=== PATIENT | male | born 1970 | race Caucasian/White ===

== ENCOUNTER 2016-12-09 10:50 | Emergency (ER) | payer OTHER ==
[~2016-12-09] VITALS: Ht 175.3 cm; Wt 95.2 kg
== END 2016-12-09 12:24 | disposition home or self-care (01) ==
LOC: ED 10:50
DX: S73.112A Iliofemoral ligament sprain of left hip, initial encounter (principal); X58.XXXA Exposure to other specified factors, initial encounter
CPT/HCPCS: 73552; 99283

== ENCOUNTER 2016-12-15 12:51 | Emergency (ER) | payer OTHER ==
[~2016-12-15] VITALS: Ht 175.3 cm; Wt 95.3 kg
[2016-12-15] MEDS ORDERED: ADVIL200 MG PO (13:02)
[2016-12-15] MEDS ORDERED: NORCO 5-325 TA1 EACH PO (14:08)
[2016-12-15] MEDS ORDERED: METHYLPREDNISOLO4 M1 PO (14:08)
== END 2016-12-15 14:27 | disposition home or self-care (01) ==
LOC: ED 12:51
DX: M25.552 Pain in left hip (principal); Z79.899 Other long term (current) drug therapy
CPT/HCPCS: 73502; 96374; 96375; 99283; J1100; J1885

== ENCOUNTER 2018-11-01 11:20 | Emergency (ER) | payer BC ==
[~2018-11-01] VITALS: Ht 175.3 cm; Wt 95.2 kg
[~2018-11-01 11:20] MED LIST: ADVIL200 MG PO; METHYLPREDNISOLO4 M1 PO; NORCO 5-325 TA1 EACH PO
--- OUTSIDE RECORDS SUMMARY | 2018-11-01 11:22 | XMS ---
PreManage Notification: ERIC JOLLEY Security Track Service Person Events No recent Security Events currently on file CRITERIA MET - Group Notification CARE PROVIDERS There are no care providers on record at this time. Anuel has no Care Guidelines for this patient. Angel VISIT COUNT (12 MO.) 1 [facility] TOTAL 1 NOTE: Visits indicate total known visits. ED/C VISIT TRACKING (12 MO.) 11/01/2018 11:20 [facility] [place] TYPE: Emergency COMPLAINT: - DIFFICULTY BREATHING INPATIENT VISIT TRACKING (12 MO.) No inpatient visits to display in this time frame [id number]
[2018-11-01] MEDS ORDERED: VENTOLIN HFA18 GM INH (13:20)
[2018-11-01] MEDS ORDERED: PREDNISONE10 MG PO (13:20)
[2018-11-01] MEDS ORDERED: ZITHROMAX1 GM PO (13:20)
--- NOTE | 2018-11-02 07:59 | EKG ---
[facility] [address] [facility] [place] [address] Signed Normal sinus rhythm Nonspecific ST and T wave abnormality Abnormal ECG No previous ECGs available Confirmed by BHUPINDER HUNT MD ([id number]) on 11/02/2018 7:58:57 AM Electronically Signed By: BHUPINDER HUNT MD 11/02/18 0759 PATIENT NAME: ERIC JOLLEY Electrocardiogram DATE OF : 74 PHYSICIAN: BHUPINDER HUNT MD REPORT #: [id number] REPORT IS CONFIDENTIAL AND NOT TO BE RELEASED WITHOUT AUTHORIZATION
== END 2018-11-01 13:47 | disposition home or self-care (01) ==
LOC: ED 11:20
DX: J45.901 Unspecified asthma with (acute) exacerbation (principal)
CPT/HCPCS: 71045; 93005; 93010; 94640; 99283-25; J7512

== ENCOUNTER 2019-02-13 14:47 | Emergency (ER) | payer OTHER ==
[~2019-02-13] VITALS: Ht 175.3 cm; Wt 113.4 kg
[~2019-02-13 14:47] MED LIST changes: +PREDNISONE10 MG PO; +VENTOLIN HFA18 GM INH; +ZITHROMAX1 GM PO
--- OUTSIDE RECORDS SUMMARY | 2019-02-13 14:50 | XMS ---
PreManage Notification: ERIC JOLLEY Security Pole Framer Events No recent Security Events currently on file CRITERIA MET - [facility] - Has Care Guidelines CARE PROVIDERS VALENTINA ARIAS [facility] 11/02/2018-Current PHONE: [phone] Anuel has no Care Guidelines for this patient. Care History Medical/Surgical 11/02/2018 [facility] - CHW HELPED PATIENT SET UP A PCP APT WITH DR PEREZ OFFICE- NEW PROVIDER DR ARIAS ON 11/22/18 @ 3:20PM. - PATIENT STATED HE WAS ABLE TO GET TO THE APT SINCE IT IS AFTER HIS WORK HOURS. - CHW DISCUSSED THE WALK IN CLINIC LOCATION AND HOURS FOR FUTURE NON EMERGENT USAGE. E.D. VISIT COUNT (12 MO.) 2 [facility] TOTAL 2 NOTE: Visits indicate total known visits. ED/UCC VISIT TRACKING (12 MO.) 02/13/2019 14:47 [facility] TYPE: Emergency COMPLAINT: - LEG PAIN, INJ 11/01/2018 11:20 [facility] TYPE: Emergency COMPLAINT: - DIFFICULTY BREATHING DIAGNOSES: - Cough - Unspecified asthma with (acute) exacerbation INPATIENT VISIT TRACKING (12 MO.) No inpatient visits to display in this time frame [id number]
== END 2019-02-13 16:55 | disposition home or self-care (01) ==
LOC: ED 14:47
DX: S86.912A Strain of unspecified muscle(s) and tendon(s) at lower leg level, left leg, initial encounter (principal); X50.1XXA Overexertion from prolonged static or awkward postures, initial encounter
CPT/HCPCS: 99283

== ENCOUNTER 2019-06-07 10:49 | Emergency (ER) | payer OTHER, BC ==
[~2019-06-07] VITALS: Ht 175.3 cm; Wt 113.4 kg
--- OUTSIDE RECORDS SUMMARY | 2019-06-07 10:52 | XMS ---
PreManage Notification: ERIC JOLLEY Security Family Literacy Coordinator Events No recent Security Events currently on file CRITERIA MET - [facility] - Has Care Guidelines CARE PROVIDERS VALENTINA ARIAS [facility] 11/02/2018-Current PHONE: [phone] Anuel has no Care Guidelines for this patient. Care History Medical/Surgical 11/02/2018 [facility] - CHW HELPED PATIENT SET UP A PCP APT WITH DR PEREZ OFFICE- NEW PROVIDER DR ARIAS ON 11/22/18 @ 3:20PM. - PATIENT STATED HE WAS ABLE TO GET TO THE APT SINCE IT IS AFTER HIS WORK HOURS. - CHW DISCUSSED THE WALK IN CLINIC LOCATION AND HOURS FOR FUTURE NON EMERGENT USAGE. E.D. VISIT COUNT (12 MO.) 3 [facility] TOTAL 3 NOTE: Visits indicate total known visits. ED/UCC VISIT TRACKING (12 MO.) 06/07/2019 10:50 [facility] TYPE: Emergency COMPLAINT: - PINCHED LEFT ARM INJURY 02/13/2019 14:47 [facility] TYPE: Emergency COMPLAINT: - LEG PAIN, INJ DIAGNOSES: - Strain of unsp musc/tend at lower leg level, left leg, init - Overexertion from prolonged static or awkward postures, init - Pain in left lower leg 11/01/2018 11:20 [facility] TYPE: Emergency COMPLAINT: - DIFFICULTY BREATHING DIAGNOSES: - Cough - Unspecified asthma with (acute) exacerbation INPATIENT VISIT TRACKING (12 MO.) No inpatient visits to display in this time frame [id number]
[2019-06-07] MEDS ORDERED: NORCO 7.5-3251 EACH PO (14:34)
== END 2019-06-07 14:46 | disposition home or self-care (01) ==
LOC: ED 10:49
DX: S57.82XA Crushing injury of left forearm, initial encounter (principal); S54.92XA Injury of unspecified nerve at forearm level, left arm, initial encounter; J45.909 Unspecified asthma, uncomplicated; Z79.51 Long term (current) use of inhaled steroids; W23.0XXA Caught, crushed, jammed, or pinched between moving objects, initial encounter; Y99.0 Civilian activity done for income or pay
CPT/HCPCS: 73090; 99283-25; A9270

== ENCOUNTER 2019-08-06 12:01 | Emergency (ER) | payer BC, OTHER ==
[~2019-08-06] VITALS: Ht 180.3 cm; Wt 117.5 kg
[~2019-08-06 12:01] MED LIST changes: +NORCO 7.5-3251 EACH PO
--- OUTSIDE RECORDS SUMMARY | 2019-08-06 12:04 | XMS ---
PreManage Notification: ERIC JOLLEY Security Surveyor Instrument Assistant Events No recent Security Events currently on file CRITERIA MET - [facility] - Has Care Guidelines CARE PROVIDERS VALENTINA ARIAS [facility] 11/02/2018-Current PHONE: [phone] Anuel has no Care Guidelines for this patient. Care History Medical/Surgical 11/02/2018 [facility] - CHW HELPED PATIENT SET UP A PCP APT WITH DR PEREZ OFFICE- NEW PROVIDER DR ARIAS ON 11/22/18 @ 3:20PM. - PATIENT STATED HE WAS ABLE TO GET TO THE APT SINCE IT IS AFTER HIS WORK HOURS. - CHW DISCUSSED THE WALK IN CLINIC LOCATION AND HOURS FOR FUTURE NON EMERGENT USAGE. E.D. VISIT COUNT (12 MO.) 4 [facility] TOTAL 4 NOTE: Visits indicate total known visits. ED/UCC VISIT TRACKING (12 MO.) 08/06/2019 12:01 [facility] TYPE: Emergency COMPLAINT: - SOB 06/07/2019 10:50 [facility] TYPE: Emergency COMPLAINT: - PINCHED LEFT ARM INJURY+ DIAGNOSES: - penitentiary (current) use of inhaled steroids - Caught, crush, jammed, or pinched betw moving objects, init - Pain in left arm - Crushing injury of left forearm, initial encounter - Civilian activity done for income or pay - Unspecified asthma, uncomplicated - Injury of unsp nerve at forearm level, left arm, init encntr 02/13/2019 14:47 [facility] TYPE: Emergency [...] visits to display in this time frame [email or web address]
[2019-08-06] MEDS ORDERED: PREDNISONE20 MG PO (12:38)
[2019-08-06] MEDS ORDERED: VENTOLIN HFA18 GM INH (12:38)
== END 2019-08-06 13:00 | disposition home or self-care (01) ==
LOC: ED 12:01
DX: J45.901 Unspecified asthma with (acute) exacerbation (principal)
CPT/HCPCS: 99284; J7512

== ENCOUNTER 2021-01-12 11:36 | Emergency (ER) | payer OTHER ==
[~2021-01-12] VITALS: Ht 180.3 cm; Wt 99.8 kg
[~2021-01-12 11:36] MED LIST changes: +PREDNISONE20 MG PO
[2021-01-12] MEDS ORDERED: HYDROCODON-ACE1 EA10 PO (14:22)
== END 2021-01-12 15:15 | disposition home or self-care (01) ==
LOC: ED 11:36
DX: S68.521A Partial traumatic transphalangeal amputation of right thumb, initial encounter (principal); W29.8XXA Contact with other powered hand tools and household machinery, initial encounter; Z23 Encounter for immunization; J45.909 Unspecified asthma, uncomplicated
CPT/HCPCS: 73140; 90471; 90715; 99283-25

== ENCOUNTER 2021-01-27 07:18 | Emergency (ER) | payer OTHER ==
[~2021-01-27] VITALS: Ht 180.3 cm; Wt 99.8 kg
[~2021-01-27 07:18] MED LIST changes: +HYDROCODON-ACE1 EA10 PO
[2021-01-27] MEDS ORDERED: HYDROCODON-ACE1 EA10 PO (08:53)
[2021-01-27] MEDS ORDERED: CEPHALEXIN500 M1 PO (08:53)
--- OUTSIDE RECORDS SUMMARY | 2021-01-27 09:32 | XMS ---
PreManage Notification: ERIC JOLLEY Security Chemical Educator Events No recent Security Events currently on file CRITERIA MET - [facility] - 2 Visits in 30 Days CARE PROVIDERS VALENTINA ARIAS [facility] 11/02/2018-Current PHONE: [phone] Anuel has no Care Guidelines for this patient. Care History Medical/Surgical 11/02/2018 [facility] - CHW HELPED PATIENT SET UP A PCP APT WITH DR PEREZ OFFICE- NEW PROVIDER DR ARIAS ON 11/22/18 @ 3:20PM. - PATIENT STATED HE WAS ABLE TO GET TO THE APT SINCE IT IS AFTER HIS WORK HOURS. - CHW DISCUSSED THE WALK IN CLINIC LOCATION AND HOURS FOR FUTURE NON EMERGENT USAGE. E.D. VISIT COUNT (12 MO.) 2 [facility] TOTAL 2 NOTE: Visits indicate total known visits. 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
== END 2021-01-27 09:20 | disposition home or self-care (01) ==
LOC: ED 07:18
DX: S61.011D Laceration without foreign body of right thumb without damage to nail, subsequent encounter (principal); L08.9 Local infection of the skin and subcutaneous tissue, unspecified; W45.8XXD Other foreign body or object entering through skin, subsequent encounter; J45.909 Unspecified asthma, uncomplicated
CPT/HCPCS: 73140; 80048; 85025; 96365; 96375; 99283-25; J0295; J1885

== ENCOUNTER 2021-04-27 06:19 | Emergency (ER) | payer OTHER ==
[~2021-04-27] VITALS: Ht 180.3 cm; Wt 104.3 kg
[~2021-04-27 06:19] MED LIST changes: +CEPHALEXIN500 M1 PO
--- OUTSIDE RECORDS SUMMARY | 2021-04-27 06:22 | XMS ---
PreManage Notification: ERIC JOLLEY Security Mail Clerk Bills Events No recent Security Events currently on file CRITERIA MET - [facility] CARE PROVIDERS VALENTINA ARIAS [facility] 01/27/2021-Current PHONE: [phone] Anuel has no Care Guidelines for this patient. Care History Medical/Surgical 11/02/2018 [facility] - W HELPED PATIENT SET UP A PCP APT WITH DR PEREZ OFFICE- NEW PROVIDER DR ARIAS ON 11/22/18 @ 3:20PM. - PATIENT STATED HE WAS ABLE TO GET TO THE APT SINCE IT IS AFTER HIS WORK HOURS. - CHW DISCUSSED THE WALK IN CLINIC LOCATION AND HOURS FOR FUTURE NON EMERGENT USAGE. E.D. VISIT COUNT (12 MO.) [address] [place] [address] TOTAL 3 NOTE: Visits indicate total known visits. ED/UCC VISIT TRACKING (12 MO.) 04/27/2021 06:20 [facility] TYPE: Emergency COMPLAINT: - CHEST PAIN 01/27/2021 07:18 [facility] TYPE: Emergency COMPLAINT: - R THUMB DRAINING/PAINFUL WOUND DIAGNOSES: - Local infection of the skin and subcutaneous tissue, unspecified - Other foreign body or object entering through skin, subsequent encounter - Laceration without foreign body of right thumb without damage to nail, subsequent encounter - Unspecified asthma, uncomplicated 01/12/2021 11:37 [facility] [place] TYPE: Emergency COMPLAINT: - R THUMB [...] visits to display in this time frame [id number]
--- NOTE | 2021-04-28 15:46 | EKG ---
[facility] [address] [facility] [place] [address] Signed Normal sinus rhythm Nonspecific T wave abnormality Abnormal ECG When compared with ECG of 01-NOV-2018 11:42, No significant change was found Confirmed by JANNIE DICKEY MD ([id number]) on 04/28/2021 3:45:39 PM Electronically Signed By: JANNIE DICKEY MD 04/28/21 1546 PATIENT NAME: ERIC JOLLEY Electrocardiogram DATE OF : 74 PHYSICIAN: JANNIE DICKEY MD REPORT #: [id number] REPORT IS CONFIDENTIAL AND NOT TO BE RELEASED WITHOUT AUTHORIZATION
== END 2021-04-27 11:09 | disposition home or self-care (01) ==
LOC: ED 06:19
DX: R07.89 Other chest pain (principal); J45.909 Unspecified asthma, uncomplicated; I25.2 Old myocardial infarction
CPT/HCPCS: 71045; 80053; 83735; 84484; 85025; 85379; 93005; 93010; 99285-25

== ENCOUNTER 2021-07-27 10:16 | Emergency (ER) | payer OTHER ==
[~2021-07-27] VITALS: Ht 180.3 cm; Wt 104.3 kg
--- OUTSIDE RECORDS SUMMARY | 2021-07-27 10:18 | XMS ---
PreManage Notification: ERIC JOLLEY Security Interventional Neuroradiologist Events No recent Security Events currently on file CRITERIA MET - [facility] CARE PROVIDERS VALENTINA ARIAS [facility] 01/27/2021-Current PHONE: [phone] Anuel has no Care Guidelines for this patient. Care History Medical/Surgical 11/02/2018 [facility] - W HELPED PATIENT SET UP A PCP APT WITH DR PEREZ OFFICE- NEW PROVIDER DR ARIAS ON 11/22/18 @ 3:20PM. - PATIENT STATED HE WAS ABLE TO GET TO THE APT SINCE IT IS AFTER HIS WORK HOURS. - CHW DISCUSSED THE WALK IN CLINIC LOCATION AND HOURS FOR FUTURE NON EMERGENT USAGE. E.D. VISIT COUNT (12 MO.) [address] [place] [address] TOTAL 4 NOTE: Visits indicate total known visits. ED/UCC VISIT TRACKING (12 MO.) 07/27/2021 10:17 [facility] [place] TYPE: Emergency COMPLAINT: - L CALF PAIN 04/27/2021 06:20 [facility] TYPE: Emergency COMPLAINT: - CHEST PAIN DIAGNOSES: - Old myocardial infarction - Unspecified asthma, uncomplicated - Other chest pain 01/27/2021 07:18 [facility] TYPE: Emergency COMPLAINT: - R THUMB DRAINING/PAINFUL WOUND DIAGNOSES: - Local infection of the skin and subcutaneous tissue, unspecified - Other foreign body or object entering through skin, subsequent encounter - Laceration without foreign body of right thumb without damage to nail, subsequent encounter - Unspecified asthma, uncomplicated 01/12/2021 11:[address] [facility] [place] TYPE: Emergency COMPLAINT: - R THUMB [...] visits to display in this time frame [id number]
[2021-07-27] MEDS ORDERED: ACETAMINOPHEN500 MG PO (10:46)
[2021-07-27] MEDS ORDERED: ADVIL200 MG PO (10:47)
== END 2021-07-27 11:20 | disposition home or self-care (01) ==
LOC: ED 10:16
DX: S86.912A Strain of unspecified muscle(s) and tendon(s) at lower leg level, left leg, initial encounter (principal); J45.909 Unspecified asthma, uncomplicated; I25.2 Old myocardial infarction; W22.8XXA Striking against or struck by other objects, initial encounter
CPT/HCPCS: 99283

== ENCOUNTER 2022-02-16 09:02 | Emergency (ER) | payer OTHER ==
[~2022-02-16] VITALS: Ht 180.3 cm; Wt 104.3 kg
[~2022-02-16 09:02] MED LIST changes: +ACETAMINOPHEN500 MG PO
== END 2022-02-16 09:43 | disposition home or self-care (01) ==
LOC: ED 09:02
DX: M65.4 Radial styloid tenosynovitis [de Quervain] (principal); I25.2 Old myocardial infarction; J45.909 Unspecified asthma, uncomplicated; Z79.899 Other long term (current) drug therapy
CPT/HCPCS: 99283

== ENCOUNTER 2022-03-24 08:51 | Emergency (ER) | payer OTHER ==
[~2022-03-24] VITALS: Ht 180.3 cm; Wt 100.7 kg
== END 2022-03-24 09:31 | disposition home or self-care (01) ==
LOC: ED 08:51
DX: M65.4 Radial styloid tenosynovitis [de Quervain] (principal); J45.909 Unspecified asthma, uncomplicated; I25.2 Old myocardial infarction; Z79.899 Other long term (current) drug therapy
CPT/HCPCS: 73110; 99283-25

== ENCOUNTER 2022-09-04 17:23 | Emergency (ER) | payer OTHER ==
[~2022-09-04] VITALS: Ht 180.3 cm; Wt 100.7 kg
--- NOTE | 2022-09-04 19:57 | EKG ---
[facility] [address] [facility] [place] [address] Signed Normal sinus rhythm Nonspecific T wave abnormality Abnormal ECG When compared with ECG of 04-SEP-2022 17:41, (Unconfirmed) Nonspecific T wave abnormality, improved in Inferior leads Confirmed by BHUPINDER HUNT MD ([id number]) on 09/04/2022 7:57:06 PM Electronically Signed By: BHUPINDER HUNT MD 09/04/221956 PATIENT NAME: ERIC JOLLEY Electrocardiogram DATE OF : 74 PHYSICIAN: BHUPINDER HUNT MD REPORT #: [id number] REPORT IS CONFIDENTIAL AND NOT TO BE RELEASED WITHOUT AUTHORIZATION
[2022-09-04] MEDS ORDERED: PREDNISONE20 MG PO (21:28)
[2022-09-04] MEDS ORDERED: BENZONATATE100 MG PO (21:28)
[2022-09-04] MEDS ORDERED: VENTOLIN HFA18 GM INH (21:28)
[2022-09-04 21:40] VITALS: BP 138/80
== END 2022-09-04 21:40 | disposition home or self-care (01) ==
LOC: ED 17:23
DX: J20.8 Acute bronchitis due to other specified organisms (principal); J45.901 Unspecified asthma with (acute) exacerbation; I25.2 Old myocardial infarction; Z20.822 Contact with and (suspected) exposure to COVID-19; Z79.899 Other long term (current) drug therapy
CPT/HCPCS: 36415; 71045; 80053; 84484; 85025; 87502; 87880; 93005; 93010; 94640; 96374; 99285-25; J2930; J7121; U0003

== ENCOUNTER 2023-05-04 12:47 | Emergency (ER) | payer OTHER ==
[~2023-05-04] VITALS: Ht 180.3 cm; Wt 114.6 kg
[~2023-05-04 12:47] MED LIST changes: +BENZONATATE100 MG PO
[2023-05-04] MEDS ORDERED: HYDROCODON-ACE1 EA10 PO (13:10)
[2023-05-04] MEDS ORDERED: AMOX TR-K CLV1 EAC1 PO (13:10)
[2023-05-04] MEDS ORDERED: PREDNISONE20 MG PO (13:10)
[2023-05-04 13:20] VITALS: BP 157/105
== END 2023-05-04 13:22 | disposition home or self-care (01) ==
LOC: ED 12:47
DX: K04.7 Periapical abscess without sinus (principal); J45.909 Unspecified asthma, uncomplicated; I25.2 Old myocardial infarction; Z79.899 Other long term (current) drug therapy
CPT/HCPCS: 64400; 99282-25

== ENCOUNTER 2024-06-23 14:53 | Emergency (ER) | payer OTHER ==
[~2024-06-23] VITALS: Ht 180.3 cm; Wt 116.6 kg
[~2024-06-23 14:53] MED LIST changes: +AMOX TR-K CLV1 EAC1 PO
[2024-06-23 15:10] LABS: BASOPHILS 0.9 % (0-2); EOSINOPHILS 5.4 % (0-6); HEMATOCRIT 46.3 % (35.0-50.0); HEMOGLOBIN 16.6 g/dL (12.0-18.0); LYMPHOCYTES 21.3 % (24-44); MCH 31.1 (27-36); MCHC 35.8 g/dl (30-36); MCV 86.8 fl (81-99); MONOCYTES 6.1 % (0-12); NEUTROPHILS 66.3 % (39-80); PLATELET COUNT 280 K/uL (140-440); RBC 5.33 M/ul (4.3-5.7); RDW 13.2 (10.5-15.0)
[2024-06-23] MEDS ORDERED: ALBUTEROL/IPRATROPIUM 3 ML NEB INH PRN (15:15)
[2024-06-23] MEDS ORDERED: methylPREDNISolone SOD SUCC 125 MG/2 ML VIAL IV ONE (15:15)
[2024-06-23 15:28] LABS: ALBUMIN 4.2 g/dL (3.4-5.0); ALBUMIN/GLOBULIN RATIO 1.14 (1.1-2.4); ANION GAP 13.1 (7-21); BILIRUBIN, TOTAL 0.7 ng/dL (0.2-1.0); BUN/CREATININE RATIO 16.36 (6.0-28.6); CALCIUM 9.2 mg/dL (8.5-10.1); CREATININE, SERUM 1.1 mg/dL (0.70-1.30); MAGNESIUM 2.1 mg/dL (1.8-2.4); POTASSIUM 4.1 mmol/L (3.5-5.1); PROTEIN, TOTAL 7.9 g/dL (6.4-8.2)
[2024-06-23] MEDS ORDERED: PREDNISONE20 MG PO (15:56)
[2024-06-23] MEDS ORDERED: VENTOLIN HFA18 GM INH (15:56)
[2024-06-23 16:15] VITALS: BP 155/87
--- NOTE | 2024-06-26 13:07 | EKG ---
[facility] [address] [facility] [place] [address] Signed Normal sinus rhythm Nonspecific T wave abnormality Abnormal ECG No previous ECGs available Confirmed by Estephania Lomeli MD ([id number]) on 06/26/2024 1:06:50 PM Electronically Signed By: ESTEPHANIA LOMELI MD 06/26/24 1307 PATIENT NAME: SAMREENERIC LUIS Electrocardiogram DATE OF : 74 PHYSICIAN: ESTEPHANIA LOMELI MD REPORT #: [id number] REPORT IS CONFIDENTIAL AND NOT TO BE RELEASED WITHOUT AUTHORIZATION
== END 2024-06-23 16:00 | disposition home or self-care (01) ==
LOC: ED 14:53
PROVIDERS: Emergency Medicine
DX: J45.901 Unspecified asthma with (acute) exacerbation (principal); I25.2 Old myocardial infarction; Z91.148 Patient's other noncompliance with medication regimen for other reason; Z79.899 Other long term (current) drug therapy
CPT/HCPCS: 36415; 71045; 80053; 83735; 84484; 85025; 93005; 93010; 94640; 96374; 99285-25; J2919

== ENCOUNTER 2024-06-27 08:40 | Emergency (ER) | payer OTHER ==
[~2024-06-27] VITALS: Ht 180.3 cm; Wt 116.6 kg
[2024-06-27] MEDS ORDERED: ALBUTEROL/IPRATROPIUM 3 ML NEB INH ONE (09:00)
[2024-06-27] MEDS ORDERED: BENZONATATE 100 MG CAP PO ONE (09:00)
[2024-06-27 09:32] LABS: CORONAVIRUS COVID-19 AG NEGATIVE (NEGATIVE); INFLUENZA A AG NEGATIVE (NEGATIVE); INFLUENZA B AG NEGATIVE (NEGATIVE)
[2024-06-27] MEDS ORDERED: BENZONATATE100 MG PO ×2 (10:18→10:19)
[2024-06-27] MEDS ORDERED: MAXI-TUSS AC L473 ML PO (10:19)
[2024-06-27 10:24] VITALS: BP 142/114
== END 2024-06-27 10:26 | disposition home or self-care (01) ==
LOC: ED 08:40
PROVIDERS: Emergency Medicine
DX: R05.9 Cough, unspecified (principal); J45.909 Unspecified asthma, uncomplicated; I25.2 Old myocardial infarction; Z79.52 Long term (current) use of systemic steroids; Z79.899 Other long term (current) drug therapy
CPT/HCPCS: 36415; 94640; 99285

== ENCOUNTER 2024-06-28 22:09 | Emergency (ER) | payer OTHER ==
[~2024-06-28] VITALS: Ht 180.3 cm; Wt 119.7 kg
[~2024-06-28 22:09] MED LIST changes: +MAXI-TUSS AC L473 ML PO
[2024-06-28] MEDS ORDERED: GUAIFENESIN/CODEINE 5 ML UDC PO ONE (23:00)
[2024-06-28] MEDS ORDERED: LIDOCAINE HCL 4% 5 ML AMP INH ONE (23:00)
[2024-06-28] MEDS ORDERED: ALBUTEROL/IPRATROPIUM 3 ML NEB INH ONE (23:45)
[2024-06-29] MEDS ORDERED: LEVOFLOXACIN500 MG PO (00:25)
[2024-06-29] MEDS ORDERED: GUAIFENESIN/CODEINE 60 ML HOME.PACK PO ONE (00:30)
[2024-06-29 01:05] VITALS: BP 126/80
[2024-06-29] MEDS ORDERED: levoFLOXacin 500 MG TAB PO ONE (01:15)
== END 2024-06-29 01:05 | disposition home or self-care (01) ==
LOC: ED 22:09
DX: J18.9 Pneumonia, unspecified organism (principal); J45.909 Unspecified asthma, uncomplicated; I25.2 Old myocardial infarction; Z79.899 Other long term (current) drug therapy
CPT/HCPCS: 71250; 94640; 99284-25

== ENCOUNTER 2025-03-02 17:39 | Emergency (ER) | payer OTHER ==
[~2025-03-02] VITALS: Ht 180.3 cm; Wt 117.5 kg
[~2025-03-02 17:39] MED LIST changes: +LEVOFLOXACIN500 MG PO
[2025-03-02] MEDS ORDERED: LIDOCAINE HCL 4% 1 EACH PATCH TD ONE (19:30)
[2025-03-02] MEDS ORDERED: KETOROLAC TROMETHAMINE 60 MG/2 ML VIAL IM ONE (19:30)
[2025-03-02] MEDS ORDERED: CYCLOBENZAPRINE HCL 10 MG HOME.PACK PO ONE (20:30)
[2025-03-02] MEDS ORDERED: HYDROCODONE BIT/ACETAMINOPHEN 5/325 MG 1 TAB HOME.PACK PO ONE (20:30)
[2025-03-02] MEDS ORDERED: LIDODERM1 EACH TOP (20:32)
[2025-03-02] MEDS ORDERED: CYCLOBENZAPRINE10 MG PO (20:32)
[2025-03-02] MEDS ORDERED: METHYLPREDNISOLO4 M1 PO (20:32)
[2025-03-02 20:43] VITALS: BP 124/89
== END 2025-03-02 20:42 | disposition home or self-care (01) ==
LOC: ED 17:39
DX: M54.50 Low back pain, unspecified (principal); J45.909 Unspecified asthma, uncomplicated; I25.2 Old myocardial infarction
CPT/HCPCS: 96372; 99283; A9270; J1885